=== PATIENT | female | born 1980 | race Asian ===

== ENCOUNTER → 2020-09-23 14:48 | Outpatient (CLI) | payer BC, SELFPAY ==
--- NOTE | ~2020-09-23 | MM_ITS ---
EXAMINATION: MM screening maggie BI w baldo HISTORY: Screening TECHNIQUE: Craniocaudal and mediolateral oblique 3-D tomosynthesis images were obtained and synthetic 2-D images were generated. CAD analysis was submitted and interpreted. COMPARISON: No prior mammogram is available for comparison at this institution. BREAST PARENCHYMAL COMPOSITION: The breasts are extremely dense, which lowers the sensitivity of mamm ography. FINDINGS: There is no evidence of suspicious mass, calcification, or architectural distortion to sugg est malignancy in either breast. There has been no suspicious interval change. IMPRESSION: 1. No mammographic evidence of malignancy. 2. Recommend routine screening mammography in one year. BI-RADS Category 1: Negative Reviewed, dictated and finalized at location A. OR STAFF CONSULTANT
== END ==
PROVIDERS: Visit Provider Nurse Practitioner Obstetrics & Gynecology
DX: Z12.31 Encounter for screening mammogram for malignant neoplasm of breast (principal)
CPT/HCPCS: 77063; 77067

== ENCOUNTER 2021-12-16 09:39 | Outpatient (CLI) | payer OTHER, SELFPAY ==
--- NOTE | ~2021-12-16 | MM_ITS ---
EXAMINATION: MM screening maggie BI w baldo HISTORY: Screening TECHNIQUE: Craniocaudal and mediolateral oblique 3-D tomosynthesis images were obtained and synthetic 2-D images were generated. CAD analysis was submitted and interpreted. COMPARISON: 09/23/2020 BREAST PARENCHYMAL COMPOSITION: The breasts are extremely dense, which lowers the sensitivity of mamm ography FINDINGS: There is no evidence of suspicious mass, calcification, or architectural distortion to sugg est malignancy in either breast. There has been no suspicious interval change. IMPRESSION: 1. No mammographic evidence of malignancy. 2. Recommend routine screening mammography in one year. BI-RADS Category 1: Negative Reviewed, dictated and finalized at location A. CTURAL TEST ENGINEER
== END 2021-12-16 09:40 | disposition home or self-care (01) ==
PROVIDERS: Visit Provider Internal Medicine
DX: Z12.31 Encounter for screening mammogram for malignant neoplasm of breast (principal)
CPT/HCPCS: 77063; 77067

== ENCOUNTER 2022-07-23 02:23 | Day surgery (SDC) | payer BC, SELFPAY ==
[2022-07-10 14:48] VITALS: BMI 21.5
[2022-07-23 13:11] VITALS: BP 96/72; PULSE 86; RESP 18; TEMP 36.7; O2SAT 100; BMI 21.1
--- NOTE | 2022-07-23 13:17 | P.PNAN_ITS ---
Anes - Initial Pre Proc Eval Procedure: Operation Date: 07/23/22 14:15 Proposed Procedures p Colonoscopy - Jj Saldivar MD s [facility] Hemorrhoid Treatment - Jj Saldivar MD Date/Time: 07/23/22 13:17 Surgeon: Jj Saldivar MD Pre Op Diagnosis: rectal bleed, hemorrhoid Patient Data Age: 42 Gender: F Height: 1.52 m Weight: 49 kg Last Vital Signs Temp 98.1 F 07/23/22 13:11 Pulse 86 07/23/22 13:11 Resp 18 07/23/22 13:11 BP 96/72 L 07/23/22 13:11 Pulse Ox 100 07/23/22 13:11 O2 Del Method Room Air 07/23/22 13:11 Allergies Allergy/AdvReac Type Severity Reaction Status Date / Time benzonatate Allergy Unknown Verified 07/23/22 13:05 [From Laquita Castaneda] Home Medications Medication Instructions Recorded Confirmed Type No Home Medications 07/05/22 07/23/22 History Patient hx anesthesia problems: none Family hx anesthesia problems: none Results Review: All pre-operative results and documents have been reviewed as part of the pre- operative evaluation. [facility] Past Medical History Medical History Allergic rhinitis Hemorrhoid Periodic health assessment, general screening, adult Social History Social History Smoking status: Never smoker Alcohol intake: current Drinks per week: 1 Alcohol use details: one a month Substance use: never Substance use type: does not use Living arrangements: with family Gender identity (if verbalized by the patient): Female Spiritual care concerns: No Anes - Eval Final PreProcedure Day of Procedure 07/23/22 13:17 Patient weight: normal Heart: regular rate and rhythm Lungs: clear to auscultation Airway: Mallampati scale class II Neurological: alert and oriented Last oral intake: >/= 8 hours ASA classification: II Emergent: no Anesthetic plan: proceed Anesthesia type and monitoring: general GIVS and standard monitoring Results Review: All pre-operative results and documents have been reviewed as part of the pre- operative evaluation. Informed Consent: The patient's anesthetic plan and its attendant risks and benefits were discussed with the patient/family/POA. Questions were solicited and answers provided to the satisfaction of the patient/family/POA.
[2022-07-23] MEDS: LACTATED RINGERS 1,000 ML 150 ML IV CONT (13:25)
--- NOTE | 2022-07-23 13:38 | WPDHPUPDATE1 ---
History and Physical Update Update Date/Time: 07/23/22 13:38 History and Physical has been reviewed, including an updated exam of the patient. There are NO changes in the patient's condition. Risks, benefits, and alternatives have been discussed and questions answered. Patient agrees to proceed with procedure.
[2022-07-23 14:00] VITALS: BP 135/109; PULSE 78; RESP 24; O2SAT 100
[2022-07-23 14:10] VITALS: BP 87/55; PULSE 63; RESP 13; O2SAT 100
[2022-07-23 14:20] VITALS: BP 89/51; PULSE 60; RESP 26; O2SAT 100
== END 2022-07-23 14:42 | disposition home or self-care (01) ==
PROVIDERS: PCP Physician Assistant Medical; Visit Provider Internal Medicine Gastroenterology
PROC: 0DJD8ZZ Inspection of Lower Intestinal Tract, Via Natural or Artificial Opening Endoscopic (ICD-10-PCS; CPT 45378; principal; 2022-07-23 14:15)
DX: K92.1 Melena (principal); K63.5 Polyp of colon
CPT/HCPCS: 45385; 88305; J2704; J7120